=== PATIENT | female | born 1975 | race Caucasian/White ===

== ENCOUNTER 2016-09-25 10:59 | Inpatient (IN) | payer SELFPAY ==
[2016-09-25] MEDS ORDERED: NS 1,000 ML IV ONE (11:13)
--- NOTE | 2016-09-25 11:21 | CPEKG ---
Heart Rate: 84 RR Interval: 714 QRSD Interval: 82 QT Interval: 368 QTC Interval: 436 QRS [place]: 104 [place] Wave [place]: 69 EKG Severity - ABNORMAL ECG - EKG Impression: ACCELERATED JUNCTIONAL RHYTHM EKG Impression: BORDERLINE RIGHT AXIS DEVIATION Electronically Signed By: Alejo Yip 25-Sep-2016 14:34:52
[2016-09-25 11:36] LABS: % IMMATURE GRANULYOCYTES 0.4 % (0.0-1.1); ABSOLUTE IMMATURE GRANULOCYTES 0.03 10^3/uL (0.00-0.10); ADD DIFF? NO; ADD MORPH? NO; ADD SCAN? NO; ATYPICAL LYMPHOCYTE FLAG 40 (0-99); FRAGMENT RBC FLAG 0 (0-99); HEMATOCRIT 42.1 % (38.0-47.0); HEMOGLOBIN 13.9 g/dL (12.6-16.3); LEFT SHIFT FLG 0 (0-99); LIPEMIA HEMOLYSIS FLAG 80 (0-99); MEAN CELL HEMOGLOBIN 30.3 pg (27.9-34.1); MEAN CELL VOLUME 91.9 fL (81.5-99.8); MEAN PLATELET VOLUME 10.4 fL (8.7-11.7); PLATELET CLUMPS FLAG 0 (0-99); PLATELET COUNT 297 10^3/uL (150-400); RED BLOOD CELL COUNT 4.58 10^6/uL (4.18-5.33); RED CELL DISTRIBUTION WIDTH 12.3 % (11.5-15.2)
[2016-09-25 11:47] LABS: INR 0.99 (0.83-1.16)
[2016-09-25 11:48] LABS: ANION GAP 9 mEq/L (8-16); APTT 26.2 SEC (23.0-38.0); CALCIUM 9.1 mg/dL (8.5-10.4); CARBON DIOXIDE 23 mEq/l (22-31); CHLORIDE 106 mEq/L (97-110); CREATININE 0.7 mg/dL (0.6-1.0); GLOMERULAR FILTRATION RATE > 60; GLUCOSE 94 mg/dL (70-100); POTASSIUM 3.9 mEq/L (3.5-5.2); SODIUM 138 mEq/L (134-144)
--- NOTE | 2016-09-25 12:00 | EDPHY ---
H & P Stated Complaint: Sharp CP after 2 point acupuncture;hurts to take deep breath HPI/ROS: CHIEF COMPLAINT: Chest Pain HISTORY OF PRESENT ILLNESS: Patient complains of chest pain that started yesterday at 3:30 p.m. while having acupuncture performed. She had 2 needles placed in the upper chest that were not painful. As soon as the needle was placed in the top of left foot she developed a sudden onset of chest pain. She informed me that it was "because, you know the energy flows from the chest to the feet." She has had constant pain since that time. It is worse with inspiration. She feels some mild shortness of breath. No fever chills. Some cough. No nausea or vomiting. No diaphoresis. No previous venous thrombolic event. No risk factors for venous thrombolic event. No risk factors for coronary artery disease. No other associated complaints or modifying factors. REVIEW OF SYSTEMS: Ten systems reviewed and are negative unless otherwise noted in the HPI EXAMINATION: General Appearance: Alert, no distress Head: normocephalic, atraumatic Eyes: Pupils equal and round, no conjunctival pallor or injection ENT, Mouth: Mucous membranes moist Neck: Normal inspection, supple, non-tender Respiratory: Diminished in the right upper field. No crackles. No wheezing. No distress. Cardiovascular: Regular rate and rhythm . No murmur. Pulses intact distally. Gastrointestinal: Abdomen is soft and nontender Back: non-tender, no bony abnormalities Neurological: GCS 15. A&O, nonfocal, normal gait Skin: Warm and dry, no rash Extremities: Nontender, no pedal edema Psychiatric: Mood and affect normal DIFFERENTIAL DIAGNOSES: Including but not limited to in no particular order: Acute Chest Pain, ACS, Stable Angina, Pneumonia, PE, duodenitis, gastritis, esophagitis, GERD MDM: 11:15 a.m. Chest pain that started yesterday afternoon around 3:30 p.m.. This was after having acupuncture performed on the chest and foot. She has had constant chest pain since this time that is not resolved. It is colicky, worse with inspiration. Risk factors for CAD are negative. Risk factors for DVT or PE are negative. Laboratory studies including troponin and D-dimer are pending at this time. She is in no acute distress, vital signs stable. 12:09 p.m. notified by radiologist Dr. Aguilar. There is a right-sided pneumothorax. I immediately consult the trauma surgeon Dr. Silva, And he has reviewed the film in the emergency department. He will consult on the patient shortly. 1:[address] Silva that he has performed the chest to without complication. He is awaiting the postprocedure chest x-ray time. Plan for follow-up in 1 week in his clinic for repeat chest x-ray. She remains awake and alert in no acute distress at this time. Vital signs stable. 2:20 p.m. I discussed the case with Dr. Wayne Silva. We discussed the chest x-ray results. He informs that we can place the patient on an atrium and placed the chest tube to suction. Observe her for 1-2 hours and repeat the chest x-ray. He said that he will return to the emergency department to re-evaluate and ordered x-ray. I discussed this with the patient she is comfortable with this. She remains normotensive with normal oxygenation on room air. She is in no acute distress and her pain has improved. 3:10 p.m. I have re-evaluated the patient. She was sleeping when I enter the room. Vital signs remained stable. Oxygenation is 96% on room air. Chest tube remains to low wall suction. 4:15 p.m. 2nd repeat chest x-ray has been performed. This is after 90 minutes on suction. There appears to be no improvement is a pneumothorax by my interpretation. Awaiting the interpretation of the radiologist and trauma surgeon. 4:45 p.m. I have discussed the case with Dr. Sarwat Morales. Will admit the patient to his service and proceed with 2nd chest tube placement. The patient remains normotensive. She is not hypoxic holding between 94% to 96% on room air. She is not tachycardic and she is in no acute distress. 5:20 p.m. the patient has been moved over to room 1 for procedural sedation and chest thoracostomy placement. She remains awake and alert. She is in no acute distress. She is not on supplemental oxygen. She is normotensive. She is admitted stable condition to Dr. Silva. EKG: Interpreted by Dr. Yip Normal sinus rhythm. 82 beats per minute. No acute ischemia SUPERVISION: Patient was evaluated in conjunction with the supervising physician. Please see their note for details. Source: Patient, Family Exam Limitations: No limitations - Personal History LMP (Females 10-55): 8-14 Days Ago Current Tetanus Diphtheria and Acellular Pertussis (TDAP): Yes - Medical/Surgical History Other PMH: healthy - Social History Smoking Status: Current some day smoker Constitutional: Initial Vital Signs Temperature (C) 98.1 F 09/25/16 11:03 Heart Rate 84 09/25/16 11:03 Respiratory Rate 20 09/25/16 11:03 Blood Pressure 107/68 09/25/16 11:03 O2 Sat (%) 99 09/25/16 11:03 O2 Delivery Mode Room Air Allergies/Adverse Reactions: No Known Allergies Allergy (Unverified 09/25/16 11:05) Home Medications: Medication Instructions Recorded NK [No Known Home Meds] 09/25/16 Medical Decision Making - Diagnostics Imaging Results: Imaging Impressions Chest X-Ray 09/25/16 11:13 Impression: Moderate right hydropneumothorax with mild tension. Results called to Luis Eduardo Sarmiento PA-C, at 12:00 PM. Chest X-Ray 09/25/16 13:05 Impression: Placement of smallbore right pleural tube with decreasing tension and right hemidiaphragm inversion. Right pneumothorax remains moderate in size. Chest X-Ray 09/25/16 16:03 Impression: Persistent and slightly increased moderate-sized right pneumothorax , with increasing tension and mass effect on the right heart border. - Data Points Laboratory Results: Laboratory Results 09/25/16 11:28 09/25/16 11:28 09/25/16 09/25/16 09/25/16 11:28 11:28 11:28 WBC RBC Hgb Hct MCV MCH MCHC RDW Plt Count MPV Neut % (Auto) Lymph % (Auto) [place] % (Auto) Eos % (Auto) Baso % (Auto) Nucleat RBC Rel Count Absolute Neuts (auto) Absolute Lymphs (auto) Absolute Monos (auto) Absolute Eos (auto) Absolute Basos (auto) Absolute Nucleated RBC Immature Gran % Immature Gran # PT 13.0 SEC SEC (12.0-15.0) INR 0.99 (0.83-1.16) APTT 26.2 SEC SEC (23.0-38.0) D-Dimer 0.36 ug/mLFEU ug/mLFEU (0.00-0.50) Sodium 138 mEq/L mEq/L (134-144) Potassium 3.9 mEq/L mEq/L (3.5-5.2) Chloride 106 mEq/L mEq/L (97-110) Carbon Dioxide 23 mEq/l mEq/l (22-31) Anion Gap 9 mEq/L mEq/L (8-16) BUN 9 mg/dL mg/dL (7-23) Creatinine 0.7 mg/dL mg/dL (0.6-1.0) Estimated GFR > 60 Glucose 94 mg/dL mg/dL (70-100) Calcium 9.1 mg/dL mg/dL (8.5-10.4) Troponin I < 0.012 ng/mL ng/mL (0-0.034) Lipase 123.0 IU/L IU/L (23-300) Beta HCG, Qual NEGATIVE 09/25/16 11:28 WBC 7.27 10^3/uL 10^3/uL (3.80-9.50) RBC 4.58 10^6/uL 10^6/uL (4.18-5.33) Hgb 13.9 g/dL g/dL (12.6-16.3) Hct 42.1 % % (38.0-47.0) MCV 91.9 fL fL (81.5-99.8) MCH 30.3 pg pg (27.9-34.1) MCHC 33.0 g/dL g/dL (32.4-36.7) RDW 12.3 % % (11.5-15.2) Plt Count 297 10^3/uL 10^3/uL (150-400) MPV 10.4 fL fL (8.7-11.7) Neut % (Auto) 62.5 % % (39.3-74.2) Lymph % (Auto) 23.2 % % (15.0-45.0) [place] % (Auto) 8.8 % % (4.5-13.0) Eos % (Auto) 4.4 % % (0.6-7.6) Baso % (Auto) 0.7 % % (0.3-1.7) Nucleat RBC Rel Count 0.0 % % (0.0-0.2) Absolute Neuts (auto) 4.54 10^3/uL 10^3/uL (1.70-6.50) Absolute Lymphs (auto) 1.69 10^3/uL 10^3/uL (1.00-3.00) Absolute Monos (auto) 0.64 10^3/uL 10^3/uL (0.30-0.80) Absolute Eos (auto) 0.32 10^3/uL 10^3/uL (0.03-0.40) Absolute Basos (auto) 0.05 10^3/uL 10^3/uL (0.02-0.10) Absolute Nucleated RBC 0.00 10^3/uL 10^3/uL (0-0.01) Immature Gran % 0.4 % % (0.0-1.1) Immature Gran # 0.03 10^3/uL 10^3/uL (0.00-0.10) PT INR APTT D-Dimer Sodium Potassium Chloride Carbon Dioxide Anion Gap BUN Creatinine Estimated GFR Glucose Calcium Troponin I Lipase Beta HCG, Qual Medications Given: Discontinued Medications Diazepam (Valium Injection) 5 mg IVP EDNOW ONE Stop: 09/25/16 13:05 Last Admin: 09/25/16 13:10 Dose: 5 mg Sodium Chloride (Ns) 1,000 mls @ 0 mls/hr IV ONCE ONE PRN Reason: Wide Open Stop: 09/25/16 11:14 Last Admin: 09/25/16 11:49 Dose: 1,000 mls Departure - Departure Referrals: Sandra May MD [Primary Care Provider] - As per Instructions
[2016-09-25 12:01] LABS: TROPONIN I < 0.012 ng/mL (0-0.034)
[2016-09-25] MEDS ORDERED: DIAZEPAM 10 MG/2 ML SYR IVP ONE (13:04)
[2016-09-25] MEDS ORDERED: DIAZEPAM 10 MG/2 ML SYR ONE (13:05)
[2016-09-25] MEDS ORDERED: ONDANSETRON 4 MG/2 ML VIAL ONE (17:16)
[2016-09-25] MEDS ORDERED: fentaNYL 100 MCG/2 ML INJ ONE (17:16)
[2016-09-25] MEDS ORDERED: MIDAZOLAM 2 MG/2 ML VIAL ONE (17:16)
[2016-09-25] MEDS ORDERED: MIDAZOLAM 2 MG/2 ML VIAL IVP ONE ×2 (17:32→18:55)
[2016-09-25] MEDS ORDERED: fentaNYL 100 MCG/2 ML INJ IVP ONE (17:32)
[2016-09-25] MEDS ORDERED: ONDANSETRON 4 MG/2 ML VIAL IVP ONE (17:32)
[2016-09-25] MEDS ORDERED: IBUPROFEN 200 MG TAB PO PRN (19:38)
[2016-09-25] MEDS ORDERED: ONDANSETRON 4 MG/2 ML VIAL IVP PRN (19:38)
[2016-09-25] MEDS ORDERED: ACETAMINOPHEN 325 MG TAB PO PRN (19:38)
[2016-09-25] MEDS ORDERED: ONDANSETRON DISINTEGRATING 4 MG TAB PO PRN (19:38)
[2016-09-25] MEDS: OXYCODONE/APAP 5/325 TAB PO PRN (20:40)
--- NOTE | 2016-09-25 21:43 | POSTOPPROG ---
Post Op Note Date of Operation: 09/25/16 Surgeon: Wayne Silva Anesthesia: IV Sedation Pre-op Diagnosis: traumatic ptx right Post-op Diagnosis: same Procedure: tube thoracostomy Inf/Abcess present in the surg proc area at time of surgery?: No Drains: Other (20 Fr chest tube) Specimen(s): none
--- NOTE | 2016-09-25 22:14 | GHP ---
[f rep st] HISTORY AND PHYSICAL DATE OF ADMISSION: 09/25/2016 HISTORY OF PRESENT ILLNESS: This is a 40-year-old woman who presents to the hospital with acute tra umatic pneumothorax. The patient had undergone acupuncture yesterday, began having increasing short ness of breath, difficulty with breathing. The patient was brought in for evaluation. Chest x-ray initially showed 20%-30% pneumothorax. An 8-Uz[place] chest tube was placed in the right chest and akshat anne marie to suction without any change in the status, and she was seen for necessity of having placement of a formal chest tube with inpatient observation. PAST MEDICAL HISTORY: None. PAST SURGICAL HISTORY: The patient denies. ALLERGIES: She has no known drug allergies. MEDICATIONS: Takes no medications. FAMILY HISTORY: None significant for pneumothorax, no previous problems such as this. REVIEW OF SYSTEMS: Significant for shortness of breath. All others are reviewed and are negative. SOCIAL HISTORY: The patient lives with her and daughter. She denies any illicit drug use o r smoking. PHYSICAL EXAMINATION: VITAL SIGNS: Temperature of 36.4, heart rate of 82, blood pressure 106/71, w ith a respiratory rate of 14, saturating 100% on 2 L nasal cannula. HEENT: Sclerae are anicteric. Oropharynx is moist. LUNGS: Clear on the left. Diminished on the right. She has rapid shallow b reathing. She has no JVD, thyromegaly, or supraclavicular adenopathy. Trachea is midline. ABDOMEN : Soft, nontender. EXTREMITIES: Without edema. 2+ over 2+ peripheral pulses. SKIN: Normal turg or and tone. No rashes. No lymphadenopathy. IMPRESSION: After looking at the chest x-ray, is traumatic pneumothorax. LABORATORY STUDIES: Significant for white blood count of 7.2, hemoglobin 13.9, hematocrit 42.1, akshat telet count of 297. Coags are normal with an INR of 0.99. Chemistry: Sodium 138, potassium 3.9, c hloride 106, bicarb 23, BUN 9, creatinine 0.7, 94 glucose. Normal lipase, troponin, and calcium. B eta quant negative. IMPRESSION: Traumatic pneumothorax. PLAN: Formal chest tube and admission. The risks, benefits, and alternatives have been outlined to the patient and her . They elected for this current plan. /[id number]/MODL
[2016-09-26] MEDS ORDERED: KETOROLAC 30 MG/1 ML SDV IVP ONE (01:30)
--- NOTE | 2016-09-26 03:14 | GOP ---
[f rep st] OPERATIVE REPORT DATE OF OPERATION: SURGEON: Wayne Silva MD ANESTHESIA: IV sedation was used. PREOPERATIVE DIAGNOSIS: Pneumothorax on the right from acupuncture. POSTOPERATIVE DIAGNOSIS: Pneumothorax on the right from acupuncture. PROCEDURE PERFORMED: Right chest tube placement. FINDINGS: INDICATIONS: This is a 40-year-old patient, who presents with a traumatic pneumothorax. DESCRIPTION OF PROCEDURE: The patient was brought into the trauma bay. After induction of IV sedat ion, the patient had her right chest prepped with chlorhexidine and draped sterilely. Previous ches t tube was removed under sterile conditions. The chest was anesthetized with 1% local anesthetic, l idocaine without epinephrine. Incision was made and deepened with blunt dissection. The chest was entered bluntly and the wiggins of air was immediately noted. The chest tube was placed into the right pleural cavity and advanced gently to 16 cm. The patient tolerated the procedure well. Secured in place using 0 silk suture. A postoperative chest x-ray shows almost complete resolution of pneumot horax. Dressing was applied. It was placed with Atrium. Needle, instrument, and sponge counts wer e assured to be correct. /[id number]/MODL
[2016-09-26] MEDS: OXYCODONE/APAP 5/325 TAB PO PRN ×3 (04:51→21:48)
[2016-09-26] MEDS: KETOROLAC 15 MG/1 ML SDV IVP SCH ×3 (08:45→20:00)
--- NOTE | 2016-09-26 11:34 | SOAPPROG ---
SOAP Progress Note Assessment/Plan: Assessment/Plan: 40 yo s/p traumatic ptx 24 Fr chest tube on right Reexapanded lung field RRR CTA Inc c/d Good tidaling on chest tube atrium Continue suction until mn cxr on water seal in am lidoderm patch 09/26/16 11:28 Objective: Vital Signs Temp Pulse Resp BP Pulse Ox 36.6 C 61 16 98/65 L 97 09/26/16 08:48 09/26/16 08:48 09/26/16 08:48 09/26/16 08:48 09/26/16 08:48 09/25/16 09/26/16 09/27/16 05:59 05:59 05:59 Intake Total 3500 Balance 3500 PT 13.0 SEC (12.0-15.0) 09/25/16 11:28 INR 0.99 (0.83-1.16) 09/25/16 11:28 ICD10 Worksheet Patient Problems: Problems Problem Status Onset Traumatic pneumohemothorax Acute - ICD10 Problem Qualifiers (1) Traumatic pneumohemothorax Qualifiers: Encounter type: E
[2016-09-26] MEDS: LIDOCAINE 5% 1 EA PATCH TD SCH (14:25)
[2016-09-26] MEDS ORDERED: PATCH REMOVAL 1 EA PATCH TD SCH (21:00)
[2016-09-27] MEDS: KETOROLAC 15 MG/1 ML SDV IVP SCH ×3 (01:41→14:15)
[2016-09-27] MEDS: OXYCODONE/APAP 5/325 TAB PO PRN ×2 (03:23→10:34)
[2016-09-27] MEDS: LIDOCAINE 5% 1 EA PATCH TD SCH (08:21)
[2016-09-27 11:27] VITALS: BP 113/59; PULSE 79; RESP 16; TEMP 98.6; O2SAT 98
== END 2016-09-27 15:19 | disposition home or self-care (01) | DRG 201 ==
LOC: F3E 19:38
PROVIDERS: ADMIT Surgery; ATTEND Surgery
PROC: 0W9930Z Drainage of Right Pleural Cavity with Drainage Device, Percutaneous Approach (ICD-10-PCS; principal; 2016-09-25)
DX: J95.811 Postprocedural pneumothorax (principal)
CPT/HCPCS: G0378; J1885; J2250; J2405; J3010

== ENCOUNTER → 2016-10-02 | Outpatient (CLI) | payer OTHER | LOC: FIMAGING 14:14 | PROVIDERS: ATTEND Surgery | DX: Z13.83 Encounter for screening for respiratory disorder NEC (principal) ==

== ENCOUNTER 2017-07-20 23:29 | Emergency (ER) | payer SELFPAY ==
[2017-07-20 23:42] VITALS: RESP 16
--- NOTE | 2017-07-21 00:04 | EDPHY ---
H & P Stated Complaint: Pain, difficulty breathing. Time Seen by Provider: 07/20/17 23:55 HPI/ROS: Chief Complaint: Abdominal pain HPI: 41-year-old woman was in the bathtub tonight. She sat up to get out felt a sharp pain in her upper mid abdomen. Also had a little bit of difficulty catching her breath. She did have a pneumothorax a year ago after an acupuncture mishap. She states she was told that this puts her at greater risk for a recurrent pneumothorax. Patient states that the abdominal cramping has improved since then. Pain right now is about a 1/10. She is very anxious concerned that she might have another problem lungs. She does have occasional episodes of feeling like she can't take a full breath. No chest pain. No cough. No decreased exercise tolerance. ROS: 10 point Review of Systems is negative except as noted in the HPI. PMH: Pneumothorax Social History: No smoking, occasional alcohol, no recreational drug use Family History: non-contributory Physical Exam: Gen: Awake, Alert, No Distress HEENT: Nose: no rhinorrhea Eyes: PERRLA, EOMI Mouth: Moist mucosa Neck: Supple, no JVD Chest: nontender, lungs clear to auscultation Heart: S1, S2 normal, no murmur Abd: Soft, non-tender, no guarding Back: no CVA tenderness, no midline tenderness Ext: no edema, non-tender Skin: no rash Neuro: CN II-XII intact, Sensation grossly intact, Strength 5/5 in bilateral upper and lower extremities - Personal History LMP (Females 10-55): Now Current Tetanus/Diphtheria Vaccine: Unsure Current Tetanus Diphtheria and Acellular Pertussis (TDAP): Unsure - Medical/Surgical History Hx Asthma: No Hx Chronic Respiratory Disease: No Hx Diabetes: No Hx Cardiac Disease: No Hx Renal Disease: No Hx Cirrhosis: No Hx Alcoholism: No Hx HIV/AIDS: No Hx Splenectomy or Spleen Trauma: No Other PMH: pneumothorax, - Social History Smoking Status: Current some day smoker Constitutional: Initial Vital Signs Temperature (C) 37 C 07/20/17 23:39 Heart Rate 91 07/20/17 23:39 Respiratory Rate 16 07/20/17 23:39 Blood Pressure 113/84 H 07/20/17 23:39 O2 Sat (%) 96 07/20/17 23:39 O2 Delivery Mode Room Air Allergies/Adverse Reactions: No Known Allergies Allergy (Unverified 09/25/16 11:05) Medical Decision Making ED Course/Re-evaluation: Patient has a soft benign abdomen. No reproducible tenderness. Lungs are clear. She is able to take full deep breath. Good oxygen saturations. Symptoms likely consistent with an abdominal wall cramp. Will check laboratory evaluations and chest x-ray and provide her with reassurance. Chest x-ray is normal. Abdominal exam is soft and benign. Chest wall exam is soft and benign. Laboratory evaluations including LFTs lipase CBC and chemistry are all normal. She is feeling improved. Symptoms consistent with abdominal wall strain and spasm. Will discharge with ice, anti-inflammatories and follow up with primary care physician if symptoms are not improving. No evidence of acute intra-abdominal process at this time. - Data Points Laboratory Results: Laboratory Results 07/21/17 00:00 07/21/17 00:00 07/21/17 07/21/17 00:00 00:00 WBC 8.09 10^3/uL 10^3/uL (3.80-9.50) RBC 4.43 10^6/uL 10^6/uL (4.18-5.33) Hgb 13.7 g/dL g/dL (12.6-16.3) Hct 41.0 % % (38.0-47.0) MCV 92.6 fL fL (81.5-99.8) MCH 30.9 pg pg (27.9-34.1) MCHC 33.4 g/dL g/dL (32.4-36.7) RDW 12.9 % % (11.5-15.2) Plt Count 251 10^3/uL 10^3/uL (150-400) MPV 10.8 fL fL (8.7-11.7) Neut % (Auto) 55.8 % % (39.3-74.2) Lymph % (Auto) 30.5 % % (15.0-45.0) [place] % (Auto) 9.8 % % (4.5-13.0) Eos % (Auto) 2.5 % % (0.6-7.6) Baso % (Auto) 0.9 % % (0.3-1.7) Nucleat RBC Rel Count 0.0 % % (0.0-0.2) Absolute Neuts (auto) 4.52 10^3/uL 10^3/uL (1.70-6.50) Absolute Lymphs (auto) 2.47 10^3/uL 10^3/uL (1.00-3.00) Absolute Monos (auto) 0.79 10^3/uL 10^3/uL (0.30-0.80) Absolute Eos (auto) 0.20 10^3/uL 10^3/uL (0.03-0.40) Absolute Basos (auto) 0.07 10^3/uL 10^3/uL (0.02-0.10) Absolute Nucleated RBC 0.00 10^3/uL 10^3/uL (0-0.01) Immature Gran % 0.5 % % (0.0-1.1) Immature Gran # 0.04 10^3/uL 10^3/uL (0.00-0.10) Sodium 146 mEq/L H mEq/L (135-145) Potassium 4.3 mEq/L mEq/L (3.5-5.2) Chloride 105 mEq/L mEq/L (97-110) Carbon Dioxide 26 mEq/l mEq/l (22-31) Anion Gap 15 mEq/L mEq/L (8-16) BUN 18 mg/dL mg/dL (7-23) Creatinine 0.8 mg/dL mg/dL (0.6-1.0) Estimated GFR > 60 Glucose 89 mg/dL mg/dL (70-100) Calcium 9.7 mg/dL mg/dL (8.5-10.4) Total Bilirubin 0.1 mg/dL mg/dL (0.1-1.4) AST 23 IU/L IU/L (14-46) ALT 40 IU/L IU/L (9-52) Alkaline Phosphatase 88 IU/L IU/L (38-126) Total Protein 7.0 g/dL g/dL (6.3-8.2) Albumin 4.1 g/dL g/dL (3.5-5.0) Lipase 171 IU/L IU/L (23-300) Departure - Departure Disposition: Home, Routine, Self-Care Clinical Impression: Abdominal muscle strain Condition: Good Instructions: Muscle Strain (ED), Core Strengthening Exercises (ED) Additional Instructions: Alternate acetaminophen (1000 mg) with ibuprofen (400 mg) every 4 hours as needed for pain. Follow up with primary care physician in 3-4 days if symptoms are not improving. Referrals: Wendi Xiao MD [Medical Doctor] - As per Instructions
[2017-07-21 01:00] LABS: PLATELET COUNT 251 10^3/uL (150-400)
[2017-07-21 01:30] VITALS: BP 120/74; PULSE 74; TEMP 97.5; O2SAT 99
== END 2017-07-21 01:59 | disposition home or self-care (01) ==
DX: S39.011A Strain of muscle, fascia and tendon of abdomen, initial encounter (principal); F17.200 Nicotine dependence, unspecified, uncomplicated; X58.XXXA Exposure to other specified factors, initial encounter